=== PATIENT | female | born 1990 | race Caucasian/White ===

== ENCOUNTER 2017-05-10 20:57 | Emergency (ER) | payer MEDICAID ==
[~2017-05-10] VITALS: Ht 152.4 cm; Wt 66.7 kg
[2017-05-10 21:55] VITALS: BP 132/89
--- NOTE | 2017-05-10 22:08 | Emergency Room Report ---
History of Present Illness General Chief Complaint: Vaginal Source: Patient Present Illness HPI Is a 26-year-old female who is 5 para 3 A1, approximately 8 weeks by date. She presents with chief complaint of pelvic cramping and vaginal bleeding. Onset for the last week. She initially had cramping and dark blood 2 days ago. Cramping got worse today and now she had bleeding. No fever or chills. No nausea no vomiting. Pain is 7/10. Denies any other complaint. No discharge or dysuria. Allergies: Coded Allergies: No Known Allergies (Unverified , 05/10/17) Patient History Past Medical History: see triage record, old chart reviewed Past Surgical History: none Pertinent Family History: none Social History: Denies: smoking Last Menstrual Period: mar 11 Now: Yes - 8 weeks : 5 Para: 1 Immunizations: other Reviewed Nursing Documentation: PMH: Agreed, PSxH: Agreed Review of Systems Eye: Denies: eye pain, blurred vision ENT: Denies: ear pain, nose congestion, throat swelling Respiratory: Denies: cough, shortness of breath Cardiovascular: Denies: chest pain, palpitations Gastrointestinal: Denies: abdominal pain, diarrhea, nausea, vomiting Musculoskeletal: Denies: back pain, joint pain Skin: Denies: rash Neurological: Denies: headache, numbness Endocrine: Denies: increased thirst, increased urine Hematologic/Lymphatic: Denies: easy bruising All Other Systems: negative except mentioned in HPI Physical Exam Vital Signs Date Time Temp Pulse Resp B/P (MAP) Pulse Ox O2 Delivery O2 Flow Rate FiO2 05/10/17 21:39 98.1 125 20 132/89 98 Room Air vitals with tachycardia Sp02 EP Interpretation: reviewed, normal General Appearance: well appearing, no apparent distress, alert Head: normocephalic, atraumatic Eyes: bilateral eye PERRL, bilateral eye EOMI ENT: hearing grossly normal, normal pharynx Neck: full range of motion, supple, no meningismus Respiratory: chest non-tender, lungs clear, normal breath sounds Cardiovascular #1: regular rate, rhythm - Heart rate 92, no murmur Gastrointestinal: normal bowel sounds, non tender, no mass, no organomegaly, no bruit, non-distended Musculoskeletal: back normal, gait/station normal, normal range of motion Psychiatric: mood/affect normal Skin: warm/dry Medical Decision Making Diagnostic Impression: Primary Impression: Threatened Additional Impression: UTI (urinary tract infection) Qualified Codes: N30.00 - Acute cystitis without hematuria ER Course Patient presents with threatened AB. Ultrasound showed normal IUP. No ectopic. We'll discharge home. no evidence of pyelonephritis or sepsis. CT/MRI/US Diagnostic Results CT/MRI/US Diagnostic Results : Imaging Test Ordered: Pelvic ultrasound Impression IUP at 9 weeks. Hear rate 160. No ectopic. Read by stereotyper. Last Vital Signs Date Time Temp Pulse Resp B/P (MAP) Pulse Ox O2 Delivery O2 Flow Rate FiO2 05/10/17 21:39 98.1 125 20 132/89 98 Room Air Status: improved Disposition: HOME, SELF-CARE Condition: Stable Scripts Nitrofurantoin Monohyd/M-Cryst (Nitrofurantoin Telfair-Mcr 100 mg) 100 Mg Capsule 100 MG ORAL Q12H, #14 CAP Prov: NEVILLE MUÑOZ M.D. 05/11/17 Additional Instructions: Followup with your DrVaibhav in 7 days. Return if symptom worsen. NEVILLE MUÑOZ M.D. May 10, 2017 22:08
[2017-05-10 23:41] LABS: APPEARANCE,URINE SLIGHTLY CLOUDY; BILIRUBIN, URINE NEGATIVE (NEGATIVE); COLOR,URINE PALE YELLOW; GLUCOSE, URINE (UA) NEGATIVE (NEGATIVE); KETONES,URINE NEGATIVE (NEGATIVE); LEUKOCYTE ESTERASE ,URINE 2+ (NEGATIVE); NITRITE,URINE NEGATIVE (NEGATIVE); PH,URINE 6.5 (4.5-8.0); PROTEIN,URINE 3+ (NEGATIVE); UROBILINOGEN,URINE NORMAL MG/DL (0.0-1.0)
[2017-05-11 00:05] VITALS: BP 130/83
[2017-05-11] MEDS ORDERED: MACROBID100 MG ORAL (00:11)
[2017-05-11 00:30] VITALS: BP 130/83
--- NOTE | 2017-05-11 09:51 | Diagnostic Imaging Report ---
Indication: Pelvic pain, cramping, patient Technique: Transabdominal and transvaginal images Comparison: none Findings: Uterus measures 8.3 cm length by 5.7 cm AP. Within the endometrium, there is a gestational sac containing a pole with a crown-rump length of 16 mm, corresponding to an estimated gestational age of 8 weeks zero days. There is positive heart activity, heart rate 163 bpm. No subchorionic hemorrhage demonstrated. No myometrial abnormality. Left ovary measures 2.7 cm length. Right ovary measures 2.5 cm length Impression: 8 weeks zero day, by crown-rump length measurement, single live intrauterine . No unusual features
== END 2017-05-11 00:30 | disposition home or self-care (01) ==
LOC: EMR 22:15
DX: O20.0 Threatened abortion (principal); Z3A.08 8 weeks gestation of pregnancy; O23.41 Unspecified infection of urinary tract in pregnancy, first trimester
CPT/HCPCS: 36415; 76830; 76856; 81001; 84702; 86900; 86901; 87086; 99284